=== PATIENT | female | born 1975 | race Caucasian/White ===

== ENCOUNTER 2020-05-23 16:53 | Emergency (ER) | payer BC ==
[~2020-05-23] VITALS: Ht 157.5 cm; Wt 82.7 kg
[2020-05-23 17:00] VITALS: BP 151/90
--- NOTE | 2020-05-23 18:15 | PHYS DOC ---
Past History Past Medical History: No Pertinent History (JACKY LEGER APRN) Past Surgical History: Other Additional Past Surgical Histo: D&C (JACKY LEGER APRN) Alcohol Use: None (JACKY LEGER APRN) General Adult EDM: Chief Complaint: LOWEREXTREMITY INJURY HPI: HPI: Patient is a 45-year-old female presents with left lower calf pain. Patient states that she had some soreness in her left calf last week. "[place] like I was sore after charley horse, but then the pain went away". "Today I was running in my yard and felt a pop in my left calf I have not been able to bear weight since ". Patient was seen in urgent care afternoon and was sent to the emergency room to rule out DVT. Patient has history of asthma and seasonal allergies. (JACKY LEGER APRN) Review of Systems: Review of Systems: Constitutional: Denies fever or chills Eyes: Denies change in visual acuity HENT: Denies nasal congestion or sore throat Respiratory: Denies cough or shortness of breath Cardiovascular: Denies chest pain or edema GI: Denies abdominal pain, nausea, vomiting, bloody stools or diarrhea : Denies dysuria Musculoskeletal: Reports left calf pain Integument: Denies rash Neurologic: Denies headache, focal weakness or sensory changes Endocrine: Denies polyuria or polydipsia Lymphatic: Denies swollen glands Psychiatric: Denies depression or anxiety (JACKY LEGER APRN) Allergies: Allergies: Allergies Coded Allergies Type Severity Reaction Last Updated Verified Penicillins Allergy Unknown 05/23/20 Yes Sulfa (Sulfonamide Antibiotics) Allergy Unknown 05/23/20 Yes (JACKY LEGER APRN) Physical Exam: PE: Constitutional: Well developed, well nourished, no acute distress, non-toxic appearance. [] HENT: Normocephalic, atraumatic, bilateral external ears normal, oropharynx moist, no oral exudates, nose normal. [] Eyes: PERRLA, EOMI, conjunctiva normal, no discharge. [] Neck: Normal range of motion, no tenderness, supple, no stridor. [] Cardiovascular:Heart rate regular rhythm, no murmur [] Lungs & Thorax: Bilateral breath sounds clear to auscultation [] Abdomen: Bowel sounds normal, soft, no tenderness, no masses, no pulsatile masses. [] Skin: Warm, dry, no erythema, no rash. [] Back: No tenderness, no CVA tenderness. [] Extremities: Left calf pain, unable to bear weight, no edema or redness, pedal pulses intact Neurologic: Alert and oriented X 3, normal motor function, normal sensory function, no focal deficits noted. [] Psychologic: Affect normal, judgement normal, mood normal. [] (JACKY LEGER APRN) Current Patient Data: Vital Signs: Vital Signs Date Time Temp Pulse Resp B/P (MAP) Pulse Ox O2 Delivery O2 Flow Rate FiO2 05/23/20 17:00 98.2 86 20 151/90 (110) 98 Room Air (JACKY LEGER APRN) EKG: EKG: [] (JACKY LEGER APRN) Radiology/Procedures: Radiology/Procedures: [] (JACKY LEGER APRN) Heart Score: Risk Factors: Risk Factors: DM, Current or recent (<one month) smoker, HTN, HLP, family history of CAD, obesity. Risk Scores: Score 0 - 3: 2.5% MACE over next 6 weeks - Discharge Home Score 4 - 6: 20.3% MACE over next 6 weeks - Admit for Clinical Observation Score 7 - 10: 72.7% MACE over next 6 weeks - Early Invasive Strategies (JACKY LEGER APRN) Course & Med Decision Making: Course & Med Decision Making Pertinent Labs and Imaging studies reviewed. (See chart for details) []Patient is a 45-year-old female presents with left lower calf pain. Patient states that she had some soreness in her left calf last week. "[place] like I was sore after charley horse, but then the pain went away". "Today I was running in my yard and felt a pop in my left calf I have not been able to bear weight since ". Patient was seen in urgent care afternoon and was sent to the [facility] room to rule out DVT. Patient has history of asthma and seasonal allergies. D-dimer ordered. Toradol ordered for pain patient states "I do not want any pain medication that can make me feel funny". DDimer negative. Tib/Fib xray ordered to rule out fracture. No evidence of acute fracture or dislocation.Mild subcutaneous soft tissue swelling about the mid left lower leg. Negative Hale test negative for Achilles rupture. RICE. Crutches give to patient. ibuprofen and tylenol. Follow up with PCP tomorrow. Impression 1.DVT 2.Achilies rupture 3.TIB/Fib fracture 4. muscle strain (JACKY LEGER APRN) Course & Med Decision Making Do not see patient, but discussed patient with HOME HEALTH ADMINISTRATOR and agreed with plan and disposition. (COLT VIZCARRA MD) Dragon Disclaimer: Dragon Disclaimer: This electronic medical record was generated, in whole or in part, using a voice recognition dictation system. (JACKY LEGER APRN) Departure Departure: Impression: Primary Impression: Muscle strain of left lower leg Qualified Codes: S86.912A - Strain of unspecified muscle(s) and tendon(s) at lower leg level, left leg, initial encounter Disposition: 01 DC HOME SELF CARE/HOMELESS Referrals: ALEJANDRO MYERS (PCP) Patient Instructions: Muscle Strain, [id number] Additional Instructions: You were seen in emergency room today for left calf pain. Test results are negative for a blood clot in your calf. X-ray shows no evidence of acute fracture or dislocation.Mild subcutaneous soft tissue swelling about the mid left lower leg. Please follow-up with your PCP tomorrow. You need to rest, use ice to the area and elevate leg. Use the crunches we provided. You may use ibuprofen and Tylenol at home for pain. Please return to emergency room with worsening symptoms or concerns. EMERGENCY DEPARTMENT GENERAL DISCHARGE INSTRUCTIONS Thank you for coming to [facility] (ED) today and trusting us with you care. We trust that you had a positivie experience in our Emergency Department. If you wish to speak to the department management, you may call the director at [phone]. YOUR FOLLOW UP INSTRUCTIONS ARE FOLLOWS: 1. Do you have a private Doctor? If you do not have a private doctor, please ask for a resource list of physicians or clinics that may be able to assist you with follow up care. 2. The Emergency Physician has interpreted your x-rays. The X-Ray specialist will also review them. If there is a change in the findings, you will be notified in 48 hours when at all possible. 3. A lab test or culture has been done, your results will be reviewed and you will be notified if you need a change in treatment. ADDITIONAL INSTRUCTIONS AND INFORMATION: 1. Your care today has been supervised by a physician who is specially trained in emergency care. Many problems require more than one evaluation for a complete diagnosis and treatment. We recommend that you schedule your follow up appointment as recommended to ensure complete treatment of you illness or injury. If you are unable to obtain follow up care and continue to have a problem, or if your condition worsens, we recommend that you return to the ED. 2. We are not able to safely determine your condition over the phone nor are we able to give sound medical advice over the phone. For these safety reasons, if you call for medical advice we will ask you to come to the ED for further evaluation. 3. If you have any questions regarding these discharge instructions please call the ED at [phone]. SAFETY INFORMATION: In the interest of safety, wellness, and injury prevention; we encourage you to wear your sealbelt, if you smoke; quite smoking, and we encourage family to use a protective helmet for bicycling and other sporting events that present an increased risk for head injury. IF YOUR SYMPTOMS WORSEN OR NEW SYMPTOMS DEVELOP, OR YOU HAVE CONCERNS ABOUT YOUR CONDITION; OR IF YOUR CONDITION WORSENS WHILE YOU ARE WAITING FOR YOUR FOLLOW UP APPOINTMENT; EITHER CONTACT YOUR PRIMARY CARE DOCTOR, THE PHYSICIAN WHOSE NAME AND NUMBER YOU WERE GIVEN, OR RETURN TO THE ED IMMEDIATELY. JACKY LEGER APRN May 23, 2020 18:15 COLT VIZCARRA MD May 23, 2020 23:05
--- NOTE | 2020-05-23 19:51 | RAD ---
EXAM: AP and lateral views left tibia/fibula DATE: 05/23/2020 6:51 PM INDICATION: Reason: Injury today, left calf pain / Spl. Instructions: / History: COMPARISON: No Prior FINDINGS/ IMPRESSION: No evidence of acute fracture or dislocation. Mild subcutaneous soft tissue swelling about the mid left lower leg. Electronically signed by: Naga Mauro MD (05/23/2020 7:49 PM) IRENA
== END 2020-05-23 20:45 | disposition home or self-care (01) ==
LOC: ER 16:53
DX: S86.912A Strain of unspecified muscle(s) and tendon(s) at lower leg level, left leg, initial encounter (principal); S86.012A Strain of left Achilles tendon, initial encounter; I82.402 Acute embolism and thrombosis of unspecified deep veins of left lower extremity; Z88.0 Allergy status to penicillin; Z88.2 Allergy status to sulfonamides; X50.9XXA Other and unspecified overexertion or strenuous movements or postures, initial encounter; Y93.02 Activity, running; Y92.89 Other specified places as the place of occurrence of the external cause; Y99.8 Other external cause status
CPT/HCPCS: 36415; 73590; 85379; 99284